=== PATIENT | female | born 1985 | race Caucasian/White ===

== ENCOUNTER 2022-07-01 15:04 | Outpatient (CLI) | payer BC, SELFPAY | END 2022-07-01 15:05 | disposition home or self-care (01) | LOC: NFLDREF 15:05 | PROVIDERS: PCP Physician Assistant Medical; Visit Provider Physician Assistant | DX: N89.8 Other specified noninflammatory disorders of vagina (principal); R10.2 Pelvic and perineal pain | CPT/HCPCS: 87086 ==